=== PATIENT | female | born 1950 | race Caucasian/White ===

== ENCOUNTER 2023-07-31 09:56 | Outpatient (OUT) | payer MEDICARE, SELFPAY | END 2023-07-31 09:57 | disposition home or self-care (01) | PROVIDERS: Family Provider Internal Medicine; PCP Radiology Diagnostic Radiology; Visit Provider Radiology Diagnostic Radiology | DX: I83.813 Varicose veins of bilateral lower extremities with pain (principal) ==

== ENCOUNTER 2023-08-14 08:56 | Outpatient (OUT) | payer MEDICARE, SELFPAY ==
--- NOTE | 2023-08-14 08:59 | VEIN_ITS ---
Patient Name: BRUCE DECKER MR#: [id number] : 1950 Exam Date: 08/14/2023 Ordering Doctor: DR JIMI MARTINEZ M.D. RADIOLOGY REPORT PROCEDURE: [facility] - OFFICE VISIT INITIAL COMPARISON: None. PROGRESS NOTES: [age] year old female who presents with a 25 year history of dilated bulging veins, discolored veins, leg pain and cramping, mild edema. The patient's left leg symptoms are worse than the right. There has been a progression of symptoms over time. This increases with prolonged standing. The patient describes an improvement with rest and elevation. The patient denies any signs and symptoms to suggest arterial ischemia. The patient describes a family history of varicose veins on maternal side. The patient has drinking and smoking history of : Occasional alcohol consumption; no tobacco use. Patient has a past medical history significant for /hypertension and hyperlipidemia. The patient denies a history of deep venous thrombus or pulmonary embolus. See separate history and physical for medication list. Remote history of treatment for varicose or spider veins. Current use of compression stockings. After review of nurse notes, history and physical exam I discussed at length the pathophysiology of venous hypertension and possible treatments, therapies and strategies available. We discussed at length the importance of elevating the lower extremities above the level of the heart, increased physical activity and compression stocking use. Ultrasound venous reflux study performed today was discussed at length with the patient. The report demonstrates mild dilation and mild reflux within proximal segment of great saphenous vein bilaterally with otherwise small right GSV and small left GSV with intermittent segments of mild reflux.. PHYSICAL EXAM: The right leg demonstrates no significant varicosities, multiple reticular veins and scattered spider veins, no ulceration, mild edema, no skin discoloration. The left leg demonstrates no significant varicosities, multiple reticular and scattered spider veins, no ulceration, mild edema, no skin discoloration. Both thighs, legs and feet were symmetrically warm to the touch. Good posterior tibial and dorsalis pedis pulses were present bilaterally. VEIN/[facility] EST Comprehensive IMPRESSION: 1. Mild bilateral venous insufficiency 2. Bilateral lower extremity reticular veins and spider veins 3. Mild lower extremity subcutaneous edema 4. No flow significant arterial disease 5. CEAP: C1, EC, , MD PLAN: 1. Continued use of compression stockings 2. Elevated legs and increased physical activity symptomatic relief 3. Bilateral lower extremities sclerotherapy for treatment of reticular veins and spider veins. Nurse notes, history and physical were reviewed and confirmed, see attached forms. The nurse was present throughout the physical exam and consultation Dictated by: Amando Zarate M.D. on 08/14/2023 at 10:37 Approved by: Amando Zarate M.D. on 08/14/2023 at 10:43
--- NOTE | 2023-08-14 08:59 | VEIN_ITS ---
Patient Name: BRUCE DECKER MR#: [id number] : 1950 Exam Date: 08/14/2023 Ordering Doctor: DR JIMI MARTINEZ M.D. RADIOLOGY REPORT PROCEDURE: [facility] EXT VENOUS REFLUX ANTHONY LMTD COMPARISON: None. INDICATIONS: Phlebitis of superficial vein of anthony lower extremity I80.03 TECHNIQUE: Duplex imaging of the lower extremity to assess the deep and superficial venous system for the presence of deep or superficial venous incompetence and to document the location and severity of disease. The study includes evaluation of the great saphenous vein (GSV), anterior accessory saphenous vein (AASV) and small saphenous vein (SSV). Patient scanned in reverse Trendelenburg and standing. FINDINGS: RIGHT LOWER EXTREMITY: Saphenofemoral Junction Reflux: Yes 8.2mm 1.8 sec GSV: Diam (mm) Reflux/ Time (sec) Proximal Thigh 7.0 Yes 1.1 Mid Thigh 3.0 No Distal Thigh 2.7 No Prox Calf 2.3 No Mid Calf 1.2 No Saphenopopliteal Junction Reflux: 2.8mm No SSV: Proximal Calf 2.3 No Mid Calf 1.9 AASV: Proximal Thigh 4.1 No Mid Thigh 2.6 No Distal Thigh Thrombi: No acute or chronic thrombus visualized Compressibility: Normal Flow: Normal Preforator: Dist/med calf 2.6mm with 1.6s reflux. Tech Note: Incompetent GSV. Patent varicose vein dist/med calf 1.6mm with 1.2s reflux. Patent varicose lateral knee 2.1mm with 0.5s reflux. 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 Tech Note: Incompetent GSV. No patent varicose veins visualized. CONCLUSION: 1. Mild reflux and dilation of the proximal segment of the right great saphenous vein. 2. Mild reflux within the left great saphenous vein with dilation of the proximal segment, but very narrowed mid and distal segments. Dictated by: Amando Zarate M.D. on 08/14/2023 at 10:19 Approved by: Amando Zarate M.D. on 08/14/2023 at 10:37
== END 2023-08-14 08:57 | disposition home or self-care (01) ==
LOC: VC 08:56
PROVIDERS: Family Provider Internal Medicine; PCP Radiology Diagnostic Radiology; Visit Provider Radiology Diagnostic Radiology
DX: I83.813 Varicose veins of bilateral lower extremities with pain (principal)
CPT/HCPCS: 93970; G0463